=== PATIENT | male | born 1995 | race Caucasian/White ===

== ENCOUNTER 2024-08-17 23:11 | Emergency (ER) | payer SELFPAY ==
[~2024-08-17] VITALS: Ht 170.2 cm; Wt 79.0 kg
[2024-08-17] MEDS ORDERED: FLUORESCEIN SODIUM 1 MG EA OU ONE (23:20)
[2024-08-17] MEDS ORDERED: TETRACAINE HCL 0.5 %/4 ML SOL OU ONE (23:20)
[2024-08-17] MEDS ORDERED: GENTAMICIN SULFATE (OPHTH) 5 ML BTL OU ONE (23:40)
[2024-08-17] MEDS ORDERED: GENTAMICIN0.3 % OU (23:44)
[2024-08-18 00:08] VITALS: BP 150/92
== END 2024-08-18 00:15 | disposition home or self-care (01) | DRG 125 ==
LOC: ED 23:11
DX: H10.13 Acute atopic conjunctivitis, bilateral (principal); Y99.0 Civilian activity done for income or pay